=== PATIENT | female | born 2000 | race Caucasian/White ===

== ENCOUNTER 2023-06-11 16:07 | Observation (INO) ==
[2023-06-11] MEDS ORDERED: SODIUM CHLORIDE 0.9% 1,000 ML IV ONE (16:55)
[2023-06-11] MEDS ORDERED: ONDANSETRON INJ 2 MG/ML 2 ML VIAL IV STA (16:55)
--- NOTE | 2023-06-11 16:55 | ED Triage Note ---
Date of Service June 11, 2023 History of Present Illness This patient was briefly evaluated while in triage. An abbreviated physical exam was performed. This patient is a 22-year-old Female who presents to the ED for evaluation of nausea and vomiting. The patient is currently 34 weeks . She has been avoiding nausea throughout her entire , worsening over the past 30 days. Patient reported that she felt like she was going to pass out yesterday. Patient has been unable to tolerate any food or liquids. Patient is currently taking Zofran and Pepcid/Tums as needed. Patient follows with Joseph [facility]. Patient has had 4 prior unsuccessful pregnancies, with this b eing the first that has advanced past the first trimester. The patient denies any abdominal pain or vaginal bleeding. Physical Exam CONSTITUTIONAL: Healthy and well nourished. Alert and oriented X 3. HEENT: Mucous membranes are dry. No scleral icterus or conjunctival injection. NECK: Full active range of motion without discomfort. RESPIRATORY: Clear to auscultation bilaterally with no wheezing, crackles, rhonchi or stridor. CARDIOVASCULAR: Regular rate and rhythm with no murmurs, rubs or gallops. GASTROINTESTINAL: Bowel sounds present in all quadrants. INTEGUMENTARY: No rash or other significant dermatologic conditions noted. HEMATOLOGIC: No ecchymosis or petechiae. PSYCHIATRIC: Positive affect. NEUROLOGIC: No focal neurologic deficits noted. Initial orders for labs and / or imaging were placed and patient was placed in the waiting area until a bed is available. Please see further documentation for the full ED course.
[2023-06-11 17:36] LABS: Basophils # (auto) 0.06 K/uL (0.00-0.20); Basophils % (auto) 0.5 %; Eosinophils # (auto) 0.08 K/uL (0.00-0.50); Eosinophils % (auto) 0.7 %; Hematocrit (blood only) 31.7 % (37.0-47.0); Hemoglobin 10.4 g/dl (12.0-16.0); Immature Granulocytes # (auto) 0.18 K/uL (0.01-0.20); Immature Granulocytes % (auto) 1.5 %; Lymphocytes # (auto) 3.08 K/uL (1.20-3.40); Lymphocytes % (auto) 25.5 %; Mean Corpuscular Hemoglobin 26.9 pg (25.0-34.0); Mean Corpuscular Hgb Conc 32.8 g/dL (32.0-36.0); Mean Corpuscular Volume 82.1 fL (80.0-100.0); Mean Platelet Volume 12.5 fL (9.4-12.4); Monocytes # (auto) 1.44 K/uL (0.11-0.59); Monocytes % (auto) 11.9 %; Neutrophils # (auto) 7.24 K/uL (1.40-6.50); Neutrophils % (auto) 59.9 %; Platelet Count 319 K/uL (130-400); RDW Coefficient of Variation 13.2 % (11.5-14.5); RDW Standard Deviation 38.8 fL (36.4-46.3); Red Blood Count 3.86 M/uL (4.20-5.40); White Blood Count 12.08 K/ul (4.8-10.8)
[2023-06-11 17:58] LABS: Alanine Aminotransferase 5 U/L (7-52); Albumin Level 3.8 gm/dl (3.4-5.0); Alkaline Phosphatase 127 U/L (34-104); Anion Gap 8 (3-11); Aspartate Aminotransferase 14 U/L (13-39); Bilirubin,Total 0.5 mg/dl (0.2-1.0); Blood Urea Nitrogen 5 mg/dl (6-23); Calcium 8.9 mg/dl (8.6-10.3); Carbon Dioxide 23 mmol/L (21-32); Chloride 103 mmol/L (98-107); Est GFR (African American) > 150.0 ml/min; Est GFR (Non-African American) 136.4 ml/min; Globulin 3.7 gm/dl (2.5-4.0); Glucose 76 mg/dl (70-99(Fasting)); Lipase 17 U/L (11-82); Potassium 3.8 mmol/L (3.5-5.1); Sodium 134 mmol/L (136-145); Total Protein 7.5 gm/dl (6.0-8.3)
[2023-06-11 18:40] LABS: Appearance Urine Cloudy (Clear); Bacteria Urine Automated 2+ (Negative); Bilirubin Urine Negative (Negative); Blood Urine Negative (Negative); Color Urine Yellow; Epithelial Cell Urine Auto >30 /lpf (0-5); Glucose Urine UA Trace (Negative); Ketones Urine Trace (Negative); Leukocyte Esterase Urine 2+ (Negative); Nitrite Urine Negative (Negative); RBC Urine Automated 0-4 /hpf (0-4); Specific Gravity Urine 1.018 (1.000-1.030); Urobilinogen Urine Negative (Negative); pH Urine 8.5 (4.5-7.5)
[2023-06-11 18:43] LABS: Protein Urine Trace (Negative)
[2023-06-11] MEDS ORDERED: SODIUM CHLORIDE 0.9% 1,000 ML IV SCH ×2 (18:58→20:45)
[2023-06-11] MEDS ORDERED: diphenhydrAMINE 50 MG/ML VIAL IV STA ×2 (19:06→20:37)
[2023-06-11] MEDS ORDERED: PROMETHAZINE 12.5 MG/50.5 ML BAG IV STA (19:06)
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
[2023-06-11] MEDS ORDERED: METOCLOPRAMIDE HCL INJ 5 MG/ML 2 ML VIAL IV STA (20:37)
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
[2023-06-11] MEDS ORDERED: PROMETHAZINE HCL 25 MG in SODIUM CHLORIDE 0.9% 50 ML IV PRN (23:40)
[2023-06-12] MEDS: LACTATED RINGER'S 1,000 ML IV PRN ×3 (00:09→16:06)
[2023-06-12] MEDS: ONDANSETRON INJ 2 MG/ML 2 ML VIAL IV PRN ×2 (00:55→07:27)
[2023-06-12] MEDS ORDERED: ACETAMINOPHEN 325 MG TAB PO PRN (01:57)
[2023-06-12] MEDS ORDERED: PROMETHAZINE HCL 25 MG in SODIUM CHLORIDE 0.9% 50 ML IV PRN (09:13)
[2023-06-12] MEDS ORDERED: ONDANSETRON 4 MG OD TAB PO SCH (09:15)
[2023-06-12] MEDS: FAMOTIDINE 20 MG TAB PO SCH ×3 (10:17→20:46)
[2023-06-12] MEDS: METOCLOPRAMIDE HCL 10 MG TABLET PO SCH ×2 (12:16→17:15)
[2023-06-13] MEDS: METOCLOPRAMIDE HCL 10 MG TABLET PO SCH ×2 (00:28→05:30)
[2023-06-13] MEDS: LACTATED RINGER'S 1,000 ML IV PRN (00:30)
[2023-06-13] MEDS: FAMOTIDINE 20 MG TAB PO SCH (07:49)
--- NOTE | 2023-06-13 08:07 | Obstetrical Progress Note ---
Date of Service June 13, 2023 Assessment & Plan (1) Intractable nausea and vomiting: Plan: 22-year-old admitted with intractable nausea and vomiting of . Patient doing well today and is tolerating oral intake. Patient is controlled on Reglan every 6 hours scheduled and Pepcid 20 mg twice daily. Will discharge home today without answer standard regimen. Patient has Phenergan that she can use as needed in addition to the standard medications. Discussed diet recommendations to reduce risk of severe nausea and vomiting. NST has been reactive (2) Third trimester : (3) GDM (gestational diabetes mellitus): Admission and Anticipated Discharge Date Admission Date: June 11, 2023 Subjective Patient doing well this morning. Tolerating oral intake with p.o. antiemetics. Patient currently tolerating Reglan well and controlling nausea. Good movement. No labor symptoms. NSTs have been reactive Results & Data Vital Signs (Past 12 Hours) Vital Signs Temp Pulse Resp BP Pulse Ox O2 Del Method 06/13/23 04:05 36.8 C 67 16 104/63 98 Room Air 06/13/23 00:30 36.9 C 67 17 101/54 L 99 Room Air PG Care Time/CCT Total # of Minutes Spent Total Time Spent with Patient: Total time spent is greater than 50% in coordination of care (as documented) at patient's floor/unit and/or counseling patient: Coding Level of Care Code 48455 SUB INP/OBS CARE 2/35MIN Diagnoses Intractable nausea and vomiting R11.2 Third trimester Z34.93 GDM (gestational diabetes mellitus) O24.419 CPT Codes Misx Procedure Codes - 09687 NST: 39555 NST ([id number]) 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
--- NOTE | 2023-06-18 07:48 | Discharge Summary ---
Date of Service June 18, 2023 Admission HPI Per Admitting Provider dealing with recent intractable nausea and vomiting Admission Exam (Per Admitting) Constitutional WD/WN, vitals as above well developed and well nourished Respiratory normal respiratory effort, lungs clear to auscultation normal respiratory effort Cardiovascular RRR, no murmur, no edema Gastrointestinal (Abdomen) normal bowel sounds, soft, nontender, no hepatosplenomegaly Discharge Data Consultations 06/11/23 21:54 ED Decision to Admit Stat Hospital Course (1) Intractable nausea and vomitin-year-old admitted with intractable nausea and vomiting of . Patient doing well today and is tolerating oral intake. Patient is controlled on Reglan every 6 hours scheduled and Pepcid 20 mg twice daily. Will discharge home today without answer standard regimen. Patient has Phenergan that she can use as needed in addition to the standard medications. Discussed diet recommendations to reduce risk of severe nausea and vomiting. NST has been reactive (2) Third trimester : (3) GDM (gestational diabetes mellitus): Coding Level of Care Code None Diagnoses Intractable nausea and vomiting R11.2 Third trimester Z34.93 GDM (gestational diabetes mellitus) O24.419
== END 2023-06-13 09:00 | disposition home or self-care (01) ==
LOC: 4S1 16:07 → ED 16:07 → 4S1 23:57 → 4E1 06-12 09:38

== ENCOUNTER 2023-07-19 08:00 | Inpatient (IN) ==
[2023-07-19] MEDS ORDERED: ONDANSETRON 4 MG OD TAB ONE (08:49)
[2023-07-19] MEDS ORDERED: ONDANSETRON 4 MG OD TAB PO PRN (10:43)
[2023-07-19] MEDS ORDERED: ACETAMINOPHEN 325 MG TAB PO PRN (10:43)
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
[2023-07-19] MEDS ORDERED: OXYTOCIN 30 UNITS/NSS 30 UNITS/500 ML BAG IV PRN ×2 (12:59→16:50)
[2023-07-19] MEDS ORDERED: LIDOCAINE 1% LOCAL 20 ML VIAL INFIL PRN (12:59)
--- NOTE | 2023-07-19 12:59 | Labor Progress Brief Note ---
Date of Service July 19, 2023 Subjective pt noting continued painful ctx. Assessment & Plan (1) 39 weeks gestation of : (2) GDM (gestational diabetes mellitus): Gestational diabetes mellitus control: diet-controlled Trimester: third trimester Qualified Code(s): O24.410 - Gestational diabetes mellitus in , diet controlled Admission and Anticipated Discharge Date Admission Date: good cx change in early labor. plan to admit, labs, iv, stadol, arom. fhts categ 1. gdm so will check bsgs. Physical Exam Constitutional: WD/WN, vitals as above Respiratory: normal respiratory effort, lungs clear to auscultation Cardiovascular: Rate/Rhythm: regular rate and regular rhythm Gastrointestinal (Abdomen): soft gravid nt efw 7# Musculoskeletal: no edema nontender calves Neurologic: grossly normal Psychiatric: A+Ox3, euthymic affect Genitourinary: Manual OB Exam: + cervical dilation (3-4), + cervical effacement 90% and + station -2 OB Exam Monitor Tracing: + external FHT monitor used, + external uterine monitor used (q2), + category I and + normal FHT variability Results & Data Vital Signs (Past 12 Hours) Vital Signs Temp Pulse Resp BP 07/19/23 08:20 18 07/19/23 08:20 18 07/19/23 08:11 69 116/60 07/19/23 08:05 98.1 F 18 Coding Level of Care Code None Diagnoses 39 weeks gestation of Z3A.39 Diet controlled gestational diabetes mellitus (GDM) in third trimester O24.410 Gestational diabetes mellitus control: diet-controlled Trimester: third trimester
[2023-07-19] MEDS ORDERED: BUTORPHANOL TARTRATE 1 MG/ML VIAL IV PRN (13:00)
[2023-07-19] MEDS: LACTATED RINGER'S 1,000 ML IV PRN ×2 (13:06→14:15)
[2023-07-19] MEDS ORDERED: fentANYL 2 MCG/ML BUPIVacaine 0.125%-NSS 100ML BAG ONE (13:16)
[2023-07-19] MEDS ORDERED: SODIUM CHLORIDE 0.9% PF INJ 10 ML VIAL ONE (13:16)
[2023-07-19] MEDS ORDERED: LIDOCAINE 2%/EPINEPHRINE 1:200,000 20 ML PF ONE (13:16)
[2023-07-19] MEDS ORDERED: BUPIVACAINE 0.25% PF 30 ML VIAL ONE (13:16)
[2023-07-19] MEDS ORDERED: ePHEDrine sulfate 50 MG/ML AMP ONE (13:16)
[2023-07-19] MEDS ORDERED: fentaNYL citrate PF 100 MCG/2 ML VIAL ONE (13:16)
[2023-07-19] MEDS ORDERED: SODIUM CHLORIDE 0.9% PF INJ 10 ML VIAL EPI STA (13:52)
[2023-07-19] MEDS ORDERED: ROPIVACAINE 0.5% PF 5 MG/ML 20 ML VIAL EPI PRN (13:52)
[2023-07-19] MEDS ORDERED: BUPIVACAINE 0.25% PF 30 ML VIAL EPI PRN (13:52)
[2023-07-19] MEDS ORDERED: NALOXONE HCL 0.4 MG/1 ML VIAL/CARP IV PRN (13:52)
[2023-07-19] MEDS ORDERED: ePHEDrine sulfate 50 MG/ML AMP IV PRN (13:52)
[2023-07-19] MEDS ORDERED: BUPIVACAINE 0.25% PF 30 ML VIAL EPI STA (13:52)
[2023-07-19] MEDS ORDERED: fentaNYL citrate PF 100 MCG/2 ML VIAL EPI PRN (13:52)
[2023-07-19] MEDS ORDERED: fentANYL 2 MCG/ML BUPIVacaine 0.125%-NSS 100ML BAG EPI PRN (13:52)
[2023-07-19] MEDS ORDERED: SODIUM CHLORIDE 0.9% PF INJ 10 ML VIAL EPI PRN (13:52)
[2023-07-19] MEDS ORDERED: LIDOCAINE 2% MPF LOCAL 5 ML VIAL EPI PRN (13:52)
[2023-07-19] MEDS ORDERED: NALOXONE HCL 1 MG in SODIUM CHLORIDE 0.9% 1,000 ML IV PRN (13:52)
[2023-07-19] MEDS ORDERED: diphenhydrAMINE 50 MG/ML VIAL IV PRN (13:52)
[2023-07-19] MEDS ORDERED: LIDOCAINE 2%/EPINEPHRINE 1:200,000 20 ML PF EPI STA (13:52)
[2023-07-19] MEDS ORDERED: NALBUPHINE HCL 5 MG in SYRINGE 0 ML IV PRN (13:52)
[2023-07-19] MEDS ORDERED: fentaNYL citrate PF 100 MCG/2 ML VIAL EPI STA (13:52)
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
[2023-07-19 14:00] LABS: Hemoglobin 9.9 g/dl (12.0-16.0); Mean Corpuscular Hemoglobin 24.8 pg (25.0-34.0); Mean Corpuscular Hgb Conc 31.9 g/dL (32.0-36.0); Mean Corpuscular Volume 77.7 fL (80.0-100.0); Mean Platelet Volume 12.8 fL (9.4-12.4); Platelet Count 273 K/uL (130-400); RDW Coefficient of Variation 14.8 % (11.5-14.5); RDW Standard Deviation 41.1 fL (36.4-46.3); Red Blood Count 3.99 M/uL (4.20-5.40); White Blood Count 24.66 K/ul (4.8-10.8)
--- NOTE | 2023-07-19 15:30 | Labor Progress Brief Note ---
Date of Service July 19, 2023 Subjective pt now comfortable. Assessment & Plan (1) 39 weeks gestation of : (2) GDM (gestational diabetes mellitus): Gestational diabetes mellitus control: diet-controlled Trimester: third trimester Qualified Code(s): O24.410 - Gestational diabetes mellitus in , diet controlled (3) Normal labor: Plan will see how arom helps her labor. fhts categ 1. awaiting bsgs. Admission and Anticipated Discharge Date Admission Date: July 19, 2023 Physical Exam Constitutional: WD/WN, vitals as above Genitourinary: Manual OB Exam: + cervical dilation 5 cm, + cervical effacement 100%, + station -1 and + amniotic fluid (AROM) clear OB Exam Monitor Tracing: + external FHT monitor used, + external uterine monitor used (q5-8), + category I and + normal FHT variability Results & Data Vital Signs (Past 12 Hours) Vital Signs Temp Pulse Resp BP Pulse Ox 07/19/23 15:19 100 07/19/23 15:19 63 07/19/23 15:14 100 07/19/23 15:14 56 L 07/19/23 15:12 62 07/19/23 15:12 108/70 07/19/23 15:09 100 07/19/23 15:09 80 07/19/23 15:07 81 07/19/23 15:07 99/56 L 07/19/23 15:04 100 07/19/23 15:04 80 07/19/23 15:02 75 07/19/23 15:02 98/56 L 07/19/23 14:59 100 07/19/23 14:59 66 07/19/23 14:57 64 07/19/23 14:57 101/53 L 07/19/23 14:54 100 07/19/23 14:54 60 07/19/23 14:52 64 07/19/23 14:52 96/51 L 07/19/23 14:49 100 07/19/23 14:49 79 07/19/23 14:46 61 07/19/23 14:46 99/54 L 07/19/23 14:44 100 07/19/23 14:44 74 07/19/23 14:42 74 07/19/23 14:42 103/53 L 07/19/23 14:39 100 07/19/23 14:39 75 07/19/23 14:36 93 07/19/23 14:36 91 H 07/19/23 14:36 91 H 07/19/23 14:36 100/53 L 07/19/23 14:34 100 07/19/23 14:34 71 07/19/23 14:34 61 07/19/23 14:34 105/57 L 07/19/23 14:32 59 L 07/19/23 14:32 100/58 L 07/19/23 14:30 58 L 07/19/23 14:30 88/50 L 07/19/23 14:29 99 07/19/23 14:29 58 L 07/19/23 14:28 55 L 07/19/23 14:28 88/49 L 07/19/23 14:26 56 L 07/19/23 14:26 90/51 L 07/19/23 14:24 99 07/19/23 14:24 55 L 07/19/23 14:24 57 L 07/19/23 14:24 96/55 L 07/19/23 14:22 55 L 07/19/23 14:22 91/50 L 07/19/23 14:20 54 L 07/19/23 14:20 98/60 L 07/19/23 14:19 100 07/19/23 14:19 64 07/19/23 14:14 100 07/19/23 14:14 60 07/19/23 14:09 100 07/19/23 14:09 56 L 07/19/23 14:06 62 07/19/23 14:06 117/70 07/19/23 14:04 99 07/19/23 14:04 72 07/19/23 13:59 99 07/19/23 13:59 70 07/19/23 13:30 18 07/19/23 13:30 18 07/19/23 13:06 54 L 117/73 07/19/23 08:20 18 07/19/23 08:20 18 07/19/23 08:11 69 116/60 07/19/23 08:05 98.1 F 18 Coding Level of Care Code None Diagnoses 39 weeks gestation of Z3A.39 Diet controlled gestational diabetes mellitus (GDM) in third trimester O24.410 Gestational diabetes mellitus control: diet-controlled Trimester: third trimester Normal labor O80; Z37.9
[2023-07-19] MEDS ORDERED: MEASLES, MUMPS & RUBELLA VIRUS VACCINE (MMR) VIAL SQ ONE (16:32)
[2023-07-19] MEDS ORDERED: bisacodyL 10 MG SUPP PR PRN (16:50)
[2023-07-19] MEDS ORDERED: oxyCODONE/ACETAMINOPHEN 5mg/325mg TAB PO PRN (16:50)
[2023-07-19] MEDS ORDERED: DIPHTHERIA/TETANUS/PERTUSSIS Vaccine (Tdap, Age 7+yrs) 0.5mL SYR/VL IM ONE (16:50)
[2023-07-19] MEDS ORDERED: BENZOCAINE 20% SPRY 85 APPLN/85 GM CAN EXT PRN (16:50)
[2023-07-19] MEDS ORDERED: HYDROCORTISONE ACETATE 25 MG SUPP PR PRN (16:50)
[2023-07-19] MEDS ORDERED: OXYTOCIN 20 UNITS/LR 1,002 ML IV SCH (16:50)
[2023-07-19] MEDS: IBUPROFEN 600 MG TAB PO PRN ×2 (17:09→23:44)
[2023-07-19] MEDS: DOCUSATE SODIUM 100 MG CAP PO SCH (21:33)
[2023-07-20] MEDS: ACETAMINOPHEN 325 MG TAB PO PRN ×2 (02:14→23:32)
[2023-07-20] MEDS: IBUPROFEN 600 MG TAB PO PRN ×4 (04:09→20:24)
--- NOTE | 2023-07-20 05:35 | Obstetrical Progress Note ---
Date of Service July 20, 2023 Results & Data Vital Signs (Past 12 Hours) Vital Signs Temp Pulse Pulse Resp BP BP Pulse Ox 07/20/23 03:04 36.7 C 71 16 97/58 L 98 07/19/23 22:33 36.5 C 70 16 105/64 98 07/19/23 19:28 36.3 C L 58 L 18 100/61 100 07/19/23 19:00 36.8 C 58 L 18 104/56 L 100 07/19/23 18:30 36.8 C 18 07/19/23 18:29 85 07/19/23 18:29 111/69 07/19/23 18:15 73 07/19/23 18:15 108/60 07/19/23 18:10 78 07/19/23 18:10 108/66 07/19/23 18:00 36.8 C 18 07/19/23 17:59 66 07/19/23 17:59 107/60 07/19/23 17:45 86 07/19/23 17:45 104/62 O2 Del Method 07/20/23 03:04 Room Air 07/19/23 22:33 Room Air 07/19/23 19:28 Room Air 07/19/23 19:00 Room Air 07/19/23 18:30 07/19/23 18:29 07/19/23 18:29 07/19/23 18:15 07/19/23 18:15 07/19/23 18:10 07/19/23 18:10 07/19/23 18:00 07/19/23 17:59 07/19/23 17:59 07/19/23 17:45 07/19/23 17:45
--- NOTE | 2023-07-20 06:17 | Obstetrical Progress Note ---
Date of Service July 20, 2023 Assessment & Plan (1) Encounter for care and examination after delivery: (2) Need for rhogam due to Rh negative mother: (3) Need for MMR vaccine: Plan stable, routine care. plan mmr and rhogam, breast feeding. Day #:: 1 Subjective Ambulation: ambulating normally Voiding: no voiding problems Diet Tolerance:: regular diet Lochia:: Small Feeding Type:: breast feeding doing well. using nsaids for cramps. well. will need rhogam and mmr Constitutional: + as per Subjective / HPI Physical Exam Constitutional WD/WN, vitals as above Respiratory normal respiratory effort, lungs clear to auscultation Cardiovascular Rate/Rhythm: regular rate and regular rhythm Gastrointestinal (Abdomen) Inspection/Auscultation: abdomen normal to inspection Percussion/Palpation: abdomen soft Fundus firm 1cm down Musculoskeletal nt calves no edema Neurologic grossly normal Psychiatric A+Ox3, euthymic affect Results & Data Vital Signs (Past 12 Hours) Vital Signs Temp Pulse Pulse Resp BP BP Pulse Ox 07/20/23 03:04 98.1 F 71 16 97/58 L 98 07/19/23 22:33 97.7 F 70 16 105/64 98 07/19/23 19:28 97.3 F L 58 L 18 100/61 100 07/19/23 19:00 98.2 F 58 L 18 104/56 L 100 07/19/23 18:30 98.2 F 18 07/19/23 18:29 85 07/19/23 18:29 111/69 O2 Del Method 07/20/23 03:04 Room Air 07/19/23 22:33 Room Air 07/19/23 19:28 Room Air 07/19/23 19:00 Room Air 07/19/23 18:30 07/19/23 18:29 07/19/23 18:29
--- NOTE | 2023-07-20 07:11 | Anesthesia Procedure Note ---
Date of Service July 20, 2023 Anesthesia Post Epidural Note Vital Signs Vital Signs: Temp Pulse Resp BP Pulse Ox O2 Del Method 98.1 F 71 16 97/58 L 98 Room Air 07/20/23 03:04 07/20/23 03:04 07/20/23 03:04 07/20/23 03:04 07/20/23 03:04 07/20/23 03:04 Pain Intensity Abdomen: Pain Intensity: 3 Notes Mental Status: alert / awake / arousable and participated in evaluation Nausea / Vomiting: adequately controlled Pain: adequately controlled Airway Patency, RR, SpO2: stable & adequate BP & HR: stable & adequate Hydration State: stable & adequate Neuraxial Anesthesia: was administered and sensory block is resolving Anesthetic Complications: no major complications apparent and Pt Satisfied with anesthetic care Epidural: Removed without complications and With tip intact Notes: no HAs/neck pain noted
[2023-07-20] MEDS: PRENATAL VITAMIN 1 TAB PO SCH (08:11)
[2023-07-20] MEDS: DOCUSATE SODIUM 100 MG CAP PO SCH ×2 (08:11→20:24)
--- NOTE | 2023-07-21 04:58 | Obstetrical Progress Note ---
Date of Service <Mike Lee DO - Last Filed: 07/21/23 06:14> July 21, 2023 Assessment & Plan <Mikekarolyn Lee DO - Last Filed: 07/21/23 06:14> (1) care following vaginal delivery: Plan 22 year old , PPD#2 Eating well, voiding well apart from one episode of incontinence, ambulating well Vitals reviewed, WNL Pain well controlled with Tylenol and Motrin Routine care - OOB, ambulation, diet progression as tolerated Will have 6 week follow up with Dr. Stanford <Angelika Shah MD - Last Filed: 07/21/23 08:04> (1) care following vaginal delivery: Subjective <Mike Lee DO - Last Filed: 07/21/23 06:14> Ambulation: ambulating normally Voiding: incontinence (notes one-time, moderate volume involuntary loss of urine ) Passing Gas:: Yes Diet Tolerance:: regular diet Lochia:: Small Feeding Type:: breast feeding pain well controlled with Tylenol and Motrin Review of Systems -Denies fever or chills -Denies dyspnea, chest pain, or palpitations -Denies dysuria -Denies headache or changes in vision Physical Exam <Mike Lee DO - Last Filed: 07/21/23 06:14> General: Alert and oriented. No acute distress Cardiac: Regular rate and rhythm, no murmurs appreciated Respiratory: Lungs clear to auscultation bilaterally, No increased work of breathing Abdominal: Soft, non-tender, non-distended. Bowel sounds present. Uterus: Uterine fundus firm, palpable below umbilicus Extremities: No lower extremity edema, calves non-tender bilaterally Results & Data <Mike Lee DO - Last Filed: 07/21/23 06:14> Vital Signs (Past 12 Hours) Vital Signs Temp Pulse Resp BP O2 Del Method 07/20/23 23:30 36.7 C 54 L 16 110/68 Room Air 07/20/23 19:20 36.8 C 51 L 16 105/54 L Room Air Supervising Physician <Angelika Shah MD - Last Filed: 07/21/23 08:04> Co-Signing Physician Notes Resident Physician Supervision Note: I interviewed and examined the patient. Discussed with Dr. Lee and agree with findings and plan as documented in the note. Any exceptions or clarifications are listed here: PP2 s/p . Had 2 episodes of incontinence, otherwise voiding like normal but having difficulty feeling sensation. VSS, exam benign and wnl. Will have pt tell nursing staff when she has to go so can do bladder scan and make sure not overflow related/retention. Otherwise ok to dc today Documented By: Angelika Shah MD Resident Activity Tracking <Mike Lee DO - Last Filed: 07/21/23 06:14> Resident Involvement: Resident Care Provided Care Provided: OB Delivery
[2023-07-21] MEDS: DOCUSATE SODIUM 100 MG CAP PO SCH (08:06)
[2023-07-21] MEDS: PRENATAL VITAMIN 1 TAB PO SCH (08:06)
[2023-07-21] MEDS: IBUPROFEN 600 MG TAB PO PRN ×2 (08:06→12:41)
[2023-07-21] MEDS ORDERED: MEASLES, MUMPS & RUBELLA VIRUS VACCINE (MMR) VIAL ONE (12:36)
--- NOTE | 2023-07-23 14:20 | Delivery Summary ---
Vaginal Delivery Summary Date of Service July 19, 2023 Vaginal Delivery Summary The patient dilated to complete and pushed to deliver a viable male infant Apgars 9 and 9 via over intact perineum. Mouth and nose bulb suctioned at perineum. Shoulders and body delivered with ease. Infant was vigorous and crying at . Cord clamped at 30 seconds of life and to maternal abdomen where the cord was then doubly clamped and cut. Placenta delivered spontaneously and intact, three-vessel cord. Hemostasis achieved with dilute pitocin and uterine massage and drainage of the bladder for approximately 300 cc under sterile conditions. Small labial laceration repaired with vicryl. Cervix and sulci intact. EBL 300 cc. Mother and baby stable in recovery. [facility] Vaginal Delivery Charge Delivery Type Details:
== END 2023-07-21 14:03 | disposition home or self-care (01) | DRG 807 ==
LOC: OPB 08:00 → 4S1 08:01 → 4E2 18:57